=== PATIENT | male | born 1990 | race Caucasian/White ===

== ENCOUNTER 2018-12-07 00:54 | Emergency (ER) | payer OTHER ==
[~2018-12-07] VITALS: Ht 170.2 cm; Wt 72.6 kg
[2018-12-07 01:23] VITALS: Ht 170.2 cm; Wt 72.6 kg
[2018-12-07 01:50] VITALS: BP 143/94
== END 2018-12-07 01:50 | disposition other institution (70) ==
LOC: ED 00:54
DX: Z02.89 Encounter for other administrative examinations (principal)

== ENCOUNTER 2018-12-15 14:46 | Emergency (ER) | payer SELFPAY ==
[~2018-12-15] VITALS: Ht 170.2 cm; Wt 75.7 kg
[2018-12-15 14:52] VITALS: BP 136/76; Ht 170.2 cm; Wt 75.7 kg
== END 2018-12-15 18:31 | disposition home or self-care (01) ==
LOC: ED 14:46
DX: S01.01XD Laceration without foreign body of scalp, subsequent encounter (principal)